=== PATIENT | male | born 1995 | race Caucasian/White ===

== ENCOUNTER 2017-09-24 15:30 | Emergency (ER) | payer SELFPAY ==
[2017-09-24 15:51] VITALS: BP 161/81; PULSE 107; RESP 18; TEMP 98.4; O2SAT 99
--- NOTE | 2017-09-24 16:30 | RADRPT ---
EXAM DATE/TIME: 09/24/2017 16:14 [facility] COMPARISON: No previous studies available for comparison. INDICATIONS : Fell on finger today while playing volleyball. MEDICAL HISTORY : None. SURGICAL HISTORY : None. ENCOUNTER: Initial ACUITY: 1 day PAIN SCORE: 5/10 LOCATION: Right 5th digit FINDINGS: AP, lateral and oblique views of the right fifth digit were obtained and demonstrate dislocation of t he fifth middle phalanx with respect to the proximal phalanx. There is one shaft width of dorsal and lateral displacement. There is no visualized fracture. There is adjacent soft tissue swelling. CONCLUSION: Dislocation of the fifth middle phalanx. Jorge Eckert MD on September 24, 2017 at 16:25 Board Certified Radiologist. This report was verified electronically.
--- NOTE | 2017-09-24 17:29 | PD ---
HPI Chief Complaint: Injury Time Seen by Provider: 17:06 Travel History International Travel<30 days: No Contact w/Intl Traveler<30days: No Traveled to known affect area: No History of Present Illness HPI 21-year-old male presents to the emergency room for evaluation of right fifth finger dislocation. Patient was playing volleyball and the ball came down on his finger. He felt a pop and had immediate pain. He looked down and his finger noticed that it was deformed. He was having difficulty moving it. Patient then came straight to the emergency room. He denies distal paresthesias. Denies any chronic medical conditions or daily medications. [facility] Past Medical History Medical History: Denies Significant Hx Tetanus Vaccination: < 5 Years Past Surgical History Surgical History: No Previous Surgery Social History Alcohol Use: No Tobacco Use: No Substance Use: No Allergies-Medications (Allergen,Severity, Reaction): Coded Allergies: No Known Allergies (Unverified , 09/24/17) Reported Meds & Prescriptions Reported Meds & Active Scripts Active No Active Prescriptions or Reported Medications Review of Systems Except as stated in HPI: all other systems reviewed are Neg Physical Exam Narrative GENERAL: Well-nourished, well-developed male in no acute distress. Afebrile. Ambulatory. SKIN: Focused skin assessment warm/dry. Moderate ecchymosis over the right PIP joint. HEAD: Normocephalic. EYES: No scleral icterus. No injection or drainage. NECK: Supple, trachea midline. No JVD or lymphadenopathy. CARDIOVASCULAR: Regular rate and rhythm without murmurs, gallops, or rubs. RESPIRATORY: Breath sounds equal bilaterally. No accessory muscle use. MUSCULOSKELETAL: No cyanosis. Mild edema of the right fifth finger. Tenderness to palpation over the PIP joint. Less than 2 second capillary refill distally. Distal sensation intact. Limited range of motion secondary to pain and deformity. Data Data Last Documented VS Vital Signs Date Time Temp Pulse Resp B/P (MAP) Pulse Ox O2 Delivery O2 Flow Rate FiO2 09/24/17 15:51 98.4 107 18 161/81 (107) 99 Orders Orders Finger ([id number]) (09/24/17 ) Finger ([id number]) (09/24/17 ) [facility] Medical Decision Making Medical Screen Exam Complete: Yes Emergency Medical Condition: Yes Medical Record Reviewed: Yes Differential Diagnosis Fracture, dislocation, contusion, abrasion Narrative Course 21-year-old male presents to the emergency room for evaluation of right fifth finger dislocation that occurred just prior to arrival after a volleyball hit the tip of his finger. Right fifth finger is neurovascularly intact with less than 2 second capillary refill distally and distal sensation intact. Patient is limited range of motion secondary deformity. X-ray shows dislocation of the middle phalanx without obvious fracture. Digital block and closed reduction was performed in the ED. Postreduction films show successful reduction of the finger with 2 small avulsion fractures. Patient placed in a finger splint and told to follow-up with a primary care physician or return for worsening symptoms. He understands and agrees to plan. Procedures Procedure Narrative REDUCTION: Digital block was performed using 1% lidocaine and 0.5% bupivacaine. After proper anesthetic, the right fifth finger was pulled gently. Patient's hand was held with moderate countertraction. There is an audible and palpable pop in patient's finger appeared in normal alignment. Neurovascular status maintained throughout. Patient tolerated procedure well. Diagnosis Primary Impression: Finger dislocation Qualified Codes: S63.259A - Unspecified dislocation of unspecified finger, initial encounter Additional Impression: Finger fracture, right Qualified Codes: S62.656A - Nondisplaced fracture of medial phalanx of right little finger, initial encounter for closed fracture Referrals: Primary Care Physician Additional Instructions: Rest and drink plenty of fluids. Keep splint on for 1 week. Take ibuprofen with food as directed, as needed for pain. Apply ice to the affected area for 20 minutes at a time, as needed for pain and swelling. Follow-up with a primary care physician. Return to the emergency room for worsening symptoms. Med/Other Pt SpecificInfo: Prescription(s) given Scripts No Active Prescriptions or Reported Meds Disposition: 01 DISCHARGE HOME Condition: Stable Eri Miranda Sep 24, 2017 17:29
--- NOTE | 2017-09-24 17:54 | RADRPT ---
EXAM DATE/TIME: 09/24/2017 17:36 [facility] COMPARISON: FINGER RIGHT 5TH DIGIT ([id number]), September 24, 2017, 16:14. INDICATIONS : Post reduction of 5th right finger. Pain and swelling. MEDICAL HISTORY : None. SURGICAL HISTORY : None. ENCOUNTER: Initial ACUITY: 1 day PAIN SCORE: 1/10 LOCATION: Right 5th finger FINDINGS: Limited AP and lateral views of the fifth digit were obtained and demonstrate reduction of the previo usly noted dislocation. There are 2 small avulsion type fracture fragments now noted along the volar aspect of the middle phalanx and head of the proximal phalanx. These measure approximately 2 mm in gr eatest diameter. There is overlying soft tissue swelling. CONCLUSION: 1. Reduction of the previously noted dislocation. 2. 2 small avulsion type fracture fragments off the volar aspect base of the middle phalanx and head of the proximal phalanx. Jorge Eckert MD on September 24, 2017 at 17:49 Board Certified Radiologist. This report was verified electronically.
== END 2017-09-24 18:38 | disposition home or self-care (01) ==
LOC: NED 15:30 → NEPK 18:38
DX: S63.256A Unspecified dislocation of right little finger, initial encounter (principal); S62.656A Nondisplaced fracture of middle phalanx of right little finger, initial encounter for closed fracture; W21.06XA Struck by volleyball, initial encounter; Y93.68 Activity, volleyball (beach) (court)
CPT/HCPCS: 26770; 73140